=== PATIENT | female | born 1940 | race Caucasian/White ===

== ENCOUNTER 2021-04-06 10:15 | Inpatient (IN) | payer MEDICARE ==
[2021-04-06 11:47] LABS: Prothrombin Time 10.9 sec (9.5-12.1)
[2021-04-06 11:56] LABS: Hemoglobin 13.5 g/dL (12.0-15.5); Mean Corpuscular HGB CONC 33.3 g/dL (32.0-36.0); Mean Corpuscular Hemoglobin 29.3 pg (27.0-33.0); Platelet Count 310 10x3/uL (150-450); RBC Distribution Width 13.2 % (11.5-14.5); White Blood Cell (WBC) Count 12.2 10x3/uL (3.5-10.5)
[2021-04-06 12:10] LABS: ALT (SGPT) 25 U/L (8-55); AST (SGOT) 23 U/L (5-34); Albumin 4.4 g/dL (3.4-4.8); Alkaline Phosphatase 85 U/L (40-110); Anion Gap 12 mmol/L (10-20); BUN (Urea Nitrogen) 21 mg/dL (9.8-20.1); Bilirubin, Total 0.7 mg/dL (0.2-1.2); Calc. Creatinine Clearance 0 mL/min (70-130); Calcium 9.5 mg/dL (7.8-10.44); Carbon Dioxide 27 mmol/L (23-31); Chloride 106 mmol/L (98-107); Globulin 2.5 g/dL (2.4-3.5); Glucose 129 mg/dL (83-110); Potassium 4.9 mmol/L (3.5-5.1); Protein, Total 6.9 g/dL (5.8-8.1); Sodium 140 mmol/L (136-145)
[2021-04-06 17:46] LABS: SARS-CoV-2 PCR by NAA Not Detected (NotDetected)
[2021-04-07 16:10] VITALS: BMI 29.0
[2021-04-09] MEDS ORDERED: Protamine Sulfate 50 MG/5 ML VIAL ONE (06:43)
[2021-04-09] MEDS ORDERED: Heparin 10,000 UNITS/ 10 ML VIAL ONE (06:43)
[2021-04-09] MEDS ORDERED: Fentanyl 100 MCG/2 ML VIAL ONE (07:14)
[2021-04-09] MEDS ORDERED: Ondansetron PF 4 MG/2 ML Vial ONE (07:22)
[2021-04-09] MEDS ORDERED: Ketorolac Tromethamine 30 MG/ML VIAL ONE (07:22)
[2021-04-09] MEDS ORDERED: PROPOFOL 200 MG/20 ML VIAL ONE (07:22)
[2021-04-09] MEDS ORDERED: Rocuronium Bromide 10 MG/ML (10ML VIAL) ONE (07:22)
[2021-04-09] MEDS ORDERED: Lidocaine 1% PF 5 ML VIAL ONE (07:22)
[2021-04-09] MEDS ORDERED: Glycopyrrolate 0.2 MG/ML 5 ML SYRINGE ONE (07:22)
[2021-04-09] MEDS ORDERED: Dexamethasone 20 MG/5 ML VIAL ONE (07:22)
[2021-04-09] MEDS ORDERED: Cepastat Lozenges 1 LOZ PO PRN (07:26)
[2021-04-09] MEDS ORDERED: Clindamycin/D5W 900 mg/50 ml Premix Bag ONE (07:33)
== END 2021-04-09 13:30 | disposition home or self-care (01) | DRG 274 ==
LOC: SURG A 04-09 05:47 → EDSTATUS 04-09 10:15
PROVIDERS: ADMIT Internal Medicine Cardiovascular Disease; ATTEND Internal Medicine Cardiovascular Disease
PROC: 02L73DK Occlusion of Left Atrial Appendage with Intraluminal Device, Percutaneous Approach (ICD-10-PCS; principal; 2021-04-09)
PROC: B24BZZ4 Ultrasonography of Heart with Aorta, Transesophageal (ICD-10-PCS; 2021-04-09)
DX: I48.0 Paroxysmal atrial fibrillation (principal); Z00.6 Encounter for examination for normal comparison and control in clinical research program; R29.6 Repeated falls; Z20.822 Contact with and (suspected) exposure to COVID-19; Z90.710 Acquired absence of both cervix and uterus; Z95.5 Presence of coronary angioplasty implant and graft; I10 Essential (primary) hypertension; E78.5 Hyperlipidemia, unspecified; I25.10 Atherosclerotic heart disease of native coronary artery without angina pectoris; Z86.010 Personal history of colon polyps; E03.9 Hypothyroidism, unspecified; Z87.19 Personal history of other diseases of the digestive system; Z79.01 Long term (current) use of anticoagulants; F17.200 Nicotine dependence, unspecified, uncomplicated; E11.9 Type 2 diabetes mellitus without complications; Z88.5 Allergy status to narcotic agent; Z88.0 Allergy status to penicillin; Z88.8 Allergy status to other drugs, medicaments and biological substances; Z88.1 Allergy status to other antibiotic agents; Z91.040 Latex allergy status; Z88.2 Allergy status to sulfonamides; Z96.651 Presence of right artificial knee joint; Z95.818 Presence of other cardiac implants and grafts
CPT/HCPCS: 33340; 36430; 80053; 85027; 85347; 85610; 86850; 86900; 86901; 93312; 93662; C1759; C1776; J1100; J1644; J1885; J2405; J2704; J2720; J3010; J3490; U0003; U0005

== ENCOUNTER 2021-05-14 12:40 | Outpatient (CLI) | payer MEDICARE ==
[2021-05-14 14:34] LABS: Hemoglobin 12.4 g/dL (12.0-15.5); Mean Corpuscular HGB CONC 32.6 g/dL (32.0-36.0); Mean Corpuscular Hemoglobin 29.4 pg (27.0-33.0); Mean Platelet Volume 10.8 fl (7.4-10.4); Platelet Count 278 10x3/uL (150-450); RBC Distribution Width 12.8 % (11.5-14.5); Red Blood Cell (RBC) Count 4.22 10x6/uL (3.90-5.03)
[2021-05-14 15:05] LABS: Anion Gap 16 mmol/L (10-20); BUN (Urea Nitrogen) 26 mg/dL (9.8-20.1); Calc. Creatinine Clearance 0 mL/min (70-130); Calcium 9.3 mg/dL (7.8-10.44); Carbon Dioxide 24 mmol/L (23-31); Chloride 106 mmol/L (98-107); Glucose 97 mg/dL (83-110); Potassium 4.6 mmol/L (3.5-5.1); Sodium 141 mmol/L (136-145)
[2021-05-14 15:07] LABS: Prothrombin Time 11.1 sec (9.5-12.1)
[2021-05-15 11:44] LABS: SARS-CoV-2 PCR by NAA DETECTED (NotDetected)
== END 2021-05-14 12:41 | disposition home or self-care (01) ==
LOC: LABBT 12:40
PROVIDERS: ATTEND Internal Medicine Cardiovascular Disease
DX: U07.1 COVID-19 (principal); Z01.812 Encounter for preprocedural laboratory examination; I48.0 Paroxysmal atrial fibrillation; Z95.818 Presence of other cardiac implants and grafts
CPT/HCPCS: 80048; 85027; 85610; U0003; U0005

== ENCOUNTER 2022-05-03 09:00 | Inpatient (IN) | payer MEDICARE ==
[2022-05-03 10:33] LABS: Hemoglobin 12.4 g/dL (12.0-15.5); Mean Corpuscular HGB CONC 33.4 g/dL (32.0-36.0); Mean Corpuscular Hemoglobin 28.6 pg (27.0-33.0); Mean Corpuscular Volume 85.5 fl (81.6-98.3); Mean Platelet Volume 10.2 fl (7.4-10.4); Platelet Count 304 10x3/uL (150-450); RBC Distribution Width 14.4 % (11.5-14.5); Red Blood Cell (RBC) Count 4.34 10x6/uL (3.90-5.03); White Blood Cell (WBC) Count 10.4 10x3/uL (3.5-10.5)
[2022-05-03 11:41] LABS: Anion Gap 14 mmol/L (10-20); BUN (Urea Nitrogen) 20 mg/dL (9.8-20.1); Calc. Creatinine Clearance 0 mL/min (70-130); Calcium 9.4 mg/dL (7.8-10.44); Carbon Dioxide 26 mmol/L (23-31); Chloride 105 mmol/L (98-107); Estimated GFR 74; Glucose 129 mg/dL (83-110); Potassium 4.5 mmol/L (3.5-5.1); Sodium 140 mmol/L (136-145)
[2022-05-04 09:33] VITALS: BMI 27.4
[2022-05-05] MEDS ORDERED: Rocuronium Bromide 50 MG/5 ML VIAL ONE (06:19)
[2022-05-05] MEDS ORDERED: Insulin Regular 300 UNITS/3 ML VIAL ONE (06:19)
[2022-05-05] MEDS ORDERED: SUGAMMADEX SODIUM 200 MG/2 ML VIAL ONE (06:19)
[2022-05-05] MEDS ORDERED: niCARdipine 25 MG/10 ML VIAL ONE (06:19)
[2022-05-05] MEDS ORDERED: Fentanyl 250 MCG/5 ML VIAL ONE (06:19)
[2022-05-05] MEDS ORDERED: Midazolam HCl 5 mg/5 ml Vial ONE (06:19)
[2022-05-05] MEDS ORDERED: Albumin 5% 0 ML ONE (06:20)
[2022-05-05] MEDS ORDERED: Aminocaproic Acid 5 GM/20 ML VIAL ONE ×2 (06:58→07:34)
[2022-05-05] MEDS ORDERED: EPINEPHrine 1 MG/10 ML Abboject SYRINGE ONE (06:58)
[2022-05-05] MEDS ORDERED: EPINEPHrine 1 MG/ML AMP ONE (06:59)
[2022-05-05] MEDS ORDERED: Heparin 10,000 UNITS/1 ML VIAL 30,000 UNITS in Sodium Chloride 0.9% 1,000 ML FS SCH (07:00)
[2022-05-05 07:05] LABS: SARS-CoV-2 NAA Rapid Test Not Detected (NotDetected)
[2022-05-05] MEDS ORDERED: Lidocaine 1% MPF 2 ML VIAL ONE (07:08)
[2022-05-05] MEDS ORDERED: Levofloxacin 500 mg/D5W 100 ml Premix Bag ONE (07:23)
[2022-05-05] MEDS ORDERED: Heparin 5,000 UNITS/ML VIAL ONE (07:34)
[2022-05-05] MEDS ORDERED: PROPOFOL 200 MG/20 ML VIAL ONE (07:34)
[2022-05-05] MEDS ORDERED: Heparin 30,000 units/30 ml VIAL ONE (07:34)
[2022-05-05] MEDS ORDERED: Calcium Chloride 1 GM/10 ML Abboject SYRINGE ONE (07:34)
[2022-05-05] MEDS ORDERED: Cardioplegic Soln 1,000 ML BAG ONE (07:34)
[2022-05-05] MEDS ORDERED: Potassium Chloride 60 MEQ/30 ML VIAL ONE (07:34)
[2022-05-05] MEDS ORDERED: Lidocaine 1% PF 5 ML VIAL ONE (07:34)
[2022-05-05] MEDS ORDERED: Norepinephrine 4 MG/4 ML VIAL ONE (07:34)
[2022-05-05] MEDS ORDERED: Sodium Bicarb 50 MEQ/50 ML VIAL ONE (07:34)
[2022-05-05] MEDS ORDERED: Lidocaine 2% PF 100 mg/5 ml Syringe ONE (07:34)
[2022-05-05] MEDS ORDERED: Protamine Sulfate 250 MG/25 ML VIAL ONE (07:34)
[2022-05-05] MEDS ORDERED: Mannitol 12.5 GM/50 ML ONE (07:34)
[2022-05-05] MEDS ORDERED: Rocuronium Bromide 10 MG/ML (10ML VIAL) ONE (07:34)
[2022-05-05] MEDS ORDERED: Esmolol 100 MG/10 ML VIAL ONE (07:34)
[2022-05-05] MEDS ORDERED: Thrombin 5000 UNITS/5 ML VIAL ONE (07:34)
[2022-05-05] MEDS ORDERED: Vancomycin 1 GM VIAL ONE (07:34)
[2022-05-05] MEDS ORDERED: PHENYLEPHRINE-NS 100 MCG/ML 10 ML SYRINGE ONE (08:11)
[2022-05-05] MEDS ORDERED: Hetastarch 6% 500 ML 500 ML IVPB PRN (11:38)
[2022-05-05] MEDS ORDERED: hydrALAZINE 20 MG/ML VIAL SLOW IVP PRN (11:38)
[2022-05-05] MEDS ORDERED: NOREPINEPHRINE 8 MG/250 ML-D5W 250 ML IVPB PRN (11:38)
[2022-05-05] MEDS ORDERED: niCARdipine 25 MG in Sodium Chloride 0.9% 250 ML 250 ML IVPB PRN (11:38)
[2022-05-05] MEDS ORDERED: Bisacodyl 5 MG TAB PO PRN (11:38)
[2022-05-05] MEDS ORDERED: Post-Op Insulin Drip Protocol IVPB ONE (11:38)
[2022-05-05] MEDS ORDERED: Promethazine HCl 25 MG/ML VIAL IM PRN (11:38)
[2022-05-05] MEDS ORDERED: Guaifenesin DM 100-10/5 ML UDCUP PO PRN (11:38)
[2022-05-05] MEDS ORDERED: Acetaminophen 325 MG TAB PO PRN (11:38)
[2022-05-05] MEDS ORDERED: Nitroglycerin 50 MG/250 ML BOT 250 ML IVPB PRN (11:38)
[2022-05-05] MEDS ORDERED: Mag-Al 1200 mg/1200 mg/30 ML UDCUP PO PRN (11:38)
[2022-05-05] MEDS ORDERED: Potassium Chloride 20 MEQ/100 ML PREMIX BAG IVPB PRN (11:38)
[2022-05-05] MEDS ORDERED: DOPamine 400 MG/D5W 250 ML 250 ML IVPB PRN (11:38)
[2022-05-05] MEDS ORDERED: Fentanyl 100 MCG/2 ML VIAL SLOW IVP PRN (11:38)
[2022-05-05] MEDS ORDERED: Bisacodyl 10 MG SUPP PR PRN (11:38)
[2022-05-05] MEDS ORDERED: Ipratropium/Albuterol 3 ML NEB NEB PRN (11:38)
[2022-05-05 11:53] LABS: Actual Bicarbonate (HCO3a) 21.9 mEq/L (22-28); Base Excess (BEa) -1.3 mEq/L (-2.0 to +3.0); CO2 Tension 31.7 mmHg (35.0-45.0); Calcium, Ionized (arterial) 1.19 mmol/L (1.12-1.30); Carboxyhemoglobin (COHb) 0.3 gm% (0.0-3.0); Hemoglobin (Hb) 11.1 g/dL (12.0-16.0); O2 Tension (PaO2), arterial 143.7 mmHg (> 70.0); Potassium - ABG Lab 4.31 mmol/L (3.70-5.30); pH, Arterial 7.46 (7.35-7.45)
[2022-05-05 11:59] LABS: Puncture Site Arterial Line
[2022-05-05 12:00] LABS: ALV-art Gradient 244.475 mmHg (0-20)
[2022-05-05 12:00] LABS: #Eosinphils 0.1 thou/uL (0.0-0.7); #Monocytes 1.6 thou/uL (0.11-0.59); #Neutrophils 15.2 thou/uL (1.40-6.50); %Basophils 0.1 % (0.0-1.0); %Eosinophils 0.4 % (0.0-10.0); %Lymphocytes 10.4 % (21.0-51.0); %Monocytes 8.5 % (0.0-10.0); %Neutrophils 80.7 % (42.0-75.0); Hemoglobin 10.5 g/dL (12.0-16.0); Mean Corpuscular HGB CONC 33.2 g/dL (32.0-36.0); Mean Corpuscular Hemoglobin 29.2 pg (27.0-31.0); Mean Platelet Volume 7.5 fL (7.4-10.4); Platelet Count 174 10x3/uL (130-400); RBC Distribution Width 13.2 % (11.5-14.5); Red Blood Cell (RBC) Count 3.59 mill/uL (4.20-5.40); White Blood Cell (WBC) Count 18.9 10x3/uL (4.8-10.8)
[2022-05-05] MEDS ORDERED: HUMULIN R 100 UNITS in Sodium Chloride 0.9% 100 ML IVPB SCH (12:00)
[2022-05-05] MEDS ORDERED: Dextrose 5% in Water 1,000 ML IV PRN (12:00)
[2022-05-05] MEDS ORDERED: Insulin Regular 300 UNITS/3 ML VIAL SC PRN (12:00)
[2022-05-05] MEDS ORDERED: Dextrose 50% Abboject 50 ML SYRINGE SLOW IVP PRN (12:00)
[2022-05-05 12:14] LABS: INR-International Normal Ratio 1.4; Prothrombin Time 17.2 sec (12.0-14.7)
[2022-05-05] MEDS: Fentanyl 100 MCG/2 ML VIAL SLOW IVP PRN ×4 (12:16→22:14)
[2022-05-05 12:22] LABS: Anion Gap 10 mmol/L (10-20); BUN (Urea Nitrogen) 13 mg/dL (9.8-20.1); Calc. Creatinine Clearance 79 mL/min (70-130); Calcium 8.1 mg/dL (7.8-10.44); Carbon Dioxide 20 mmol/L (23-31); Chloride 113 mmol/L (98-107); Estimated GFR 89; Glucose 196 mg/dL (83-110); Potassium 4.4 mmol/L (3.5-5.1); Sodium 139 mmol/L (136-145)
[2022-05-05] MEDS: Lactated Ringer's 1,000 ML IV SCH (12:22)
[2022-05-05] MEDS: Clindamycin/D5W 900 MG in Premix Bag 1 BAG IVPB SCH ×2 (13:39→22:07)
[2022-05-05 18:18] LABS: Hemoglobin 11.6 g/dL (12.0-16.0)
[2022-05-05] MEDS: traMADol HCl 50 MG TAB PO PRN ×2 (18:24→23:23)
[2022-05-05 18:33] LABS: Glucose 139 mg/dL (83-110)
[2022-05-05 18:45] LABS: Potassium 3.4 mmol/L (3.5-5.1)
[2022-05-05] MEDS: Famotidine/PF 20 mg/2ml Vial SLOW IVP SCH (22:07)
[2022-05-06] MEDS: Fentanyl 100 MCG/2 ML VIAL SLOW IVP PRN (02:11)
[2022-05-06] MEDS: Lactated Ringer's 1,000 ML IV SCH (02:14)
[2022-05-06] MEDS: Ondansetron PF 4 MG/2 ML Vial IVP PRN ×4 (02:36→22:04)
[2022-05-06 04:25] LABS: Hemoglobin 10.4 g/dL (12.0-16.0); Mean Corpuscular HGB CONC 33.4 g/dL (32.0-36.0); Mean Corpuscular Hemoglobin 29.3 pg (27.0-31.0); Mean Corpuscular Volume 87.6 fl (78.0-98.0); Mean Platelet Volume 7.8 fL (7.4-10.4); Platelet Count 216 10x3/uL (130-400); RBC Distribution Width 13.1 % (11.5-14.5); Red Blood Cell (RBC) Count 3.55 mill/uL (4.20-5.40); White Blood Cell (WBC) Count 22.1 10x3/uL (4.8-10.8)
[2022-05-06 04:41] LABS: Anion Gap 9 mmol/L (10-20); BUN (Urea Nitrogen) 15 mg/dL (9.8-20.1); Calc. Creatinine Clearance 75 mL/min (70-130); Calcium 8.2 mg/dL (7.8-10.44); Carbon Dioxide 22 mmol/L (23-31); Chloride 109 mmol/L (98-107); Estimated GFR 78; Glucose 126 mg/dL (83-110); Potassium 4.4 mmol/L (3.5-5.1); Sodium 136 mmol/L (136-145)
[2022-05-06] MEDS: traMADol HCl 50 MG TAB PO PRN ×2 (05:14→11:15)
[2022-05-06] MEDS: Clindamycin/D5W 900 MG in Premix Bag 1 BAG IVPB SCH (05:15)
[2022-05-06 05:55] LABS: Band 6 % (5-11); Hypochromia SLIGHT = 6-15 cells (100X) (0-5/hpf); Lymphocytes 13 % (21-51); MDiff Complete? YES; Monocytes 13 % (0-10); Neutrophil 68 % (42-75); Platelet Morphology Comment Appears Adequate
[2022-05-06] MEDS ORDERED: Lactated Ringer's 1,000 ML IV SCH (07:11)
[2022-05-06] MEDS: Famotidine/PF 20 mg/2ml Vial SLOW IVP SCH (08:36)
[2022-05-06] MEDS: Aspirin Chewable 81 MG TAB PO SCH (08:36)
[2022-05-06] MEDS: Polyethylene Glycol 3350 17 GM Packet PO SCH (08:37)
[2022-05-06] MEDS ORDERED: Aspirin 325 MG TAB PO SCH (09:00)
[2022-05-06] MEDS ORDERED: Magnesium 2 GM/50 ML(in water) 2 GM in Premix Bag 1 BAG IVPB SCH (09:00)
[2022-05-06] MEDS: Insulin Regular 300 UNITS/3 ML VIAL SC PRN ×2 (11:17→18:32)
[2022-05-06] MEDS ORDERED: Insulin Glargine 30 UNITS/0.3 ML VIAL SC PRN (11:49)
[2022-05-06] MEDS: HYDROcodone/Acetaminophen 5/325 mg Tablet PO PRN ×3 (14:17→22:04)
[2022-05-06] MEDS ORDERED: Nitroglycerin 0.4 MG TAB (25 Tab Bottle) SL PRN (18:55)
[2022-05-06] MEDS: Famotidine 20 MG TAB PO SCH (21:05)
[2022-05-07] MEDS ORDERED: Digoxin 0.5 MG/2 ML AMP SLOW IVP SCH (01:00)
[2022-05-07] MEDS: Ondansetron PF 4 MG/2 ML Vial IVP PRN (03:31)
[2022-05-07] MEDS: HYDROcodone/Acetaminophen 5/325 mg Tablet PO PRN ×3 (03:32→18:02)
[2022-05-07 04:56] LABS: Mean Corpuscular HGB CONC 32.9 g/dL (32.0-36.0); Mean Corpuscular Hemoglobin 28.8 pg (27.0-31.0); Mean Corpuscular Volume 87.5 fl (78.0-98.0); Mean Platelet Volume 8.9 fL (7.4-10.4); Platelet Count 149 10x3/uL (130-400); Red Blood Cell (RBC) Count 3.11 mill/uL (4.20-5.40); White Blood Cell (WBC) Count 16.4 10x3/uL (4.8-10.8)
[2022-05-07 05:15] LABS: Anion Gap 9 mmol/L (10-20); BUN (Urea Nitrogen) 15 mg/dL (9.8-20.1); Calc. Creatinine Clearance 71 mL/min (70-130); Calcium 8.3 mg/dL (7.8-10.44); Carbon Dioxide 25 mmol/L (23-31); Chloride 103 mmol/L (98-107); Estimated GFR 75; Glucose 143 mg/dL (83-110); Potassium 4.2 mmol/L (3.5-5.1); Sodium 133 mmol/L (136-145)
[2022-05-07 05:40] LABS: Band 13 % (5-11); Eosinophils 1 % (0-10); Lymphocytes 13 % (21-51); MDiff Complete? YES; Monocytes 14 % (0-10); Neutrophil 59 % (42-75)
[2022-05-07] MEDS: Potassium Chloride 10 MEQ TAB PO SCH (08:26)
[2022-05-07] MEDS: Aspirin Chewable 81 MG TAB PO SCH (08:27)
[2022-05-07] MEDS: Famotidine 20 MG TAB PO SCH ×2 (08:27→20:38)
[2022-05-07] MEDS: Furosemide 40 MG TAB PO SCH (08:27)
[2022-05-07] MEDS: Polyethylene Glycol 3350 17 GM Packet PO SCH (08:27)
[2022-05-08] MEDS: HYDROcodone/Acetaminophen 5/325 mg Tablet PO PRN ×3 (01:40→21:48)
[2022-05-08] MEDS: Furosemide 40 MG TAB PO SCH (10:30)
[2022-05-08] MEDS: Famotidine 20 MG TAB PO SCH ×2 (10:31→21:47)
[2022-05-08] MEDS: Aspirin Chewable 81 MG TAB PO SCH (10:32)
[2022-05-08] MEDS: Polyethylene Glycol 3350 17 GM Packet PO SCH (10:32)
[2022-05-08] MEDS: Potassium Chloride 10 MEQ TAB PO SCH (10:37)
[2022-05-09] MEDS: Furosemide 40 MG TAB PO SCH (08:22)
[2022-05-09] MEDS: Potassium Chloride 10 MEQ TAB PO SCH (08:23)
[2022-05-09] MEDS: Aspirin Chewable 81 MG TAB PO SCH (08:23)
[2022-05-09] MEDS: Famotidine 20 MG TAB PO SCH (08:23)
[2022-05-09] MEDS: Polyethylene Glycol 3350 17 GM Packet PO SCH (08:24)
[2022-05-09] MEDS: HYDROcodone/Acetaminophen 5/325 mg Tablet PO PRN (10:52)
[2022-05-09 12:38] VITALS: BP 134/61; TEMP 98.5
== END 2022-05-09 17:25 | disposition home or self-care (01) | DRG 236 ==
LOC: SURG A 05-05 05:48 → EDSTATUS 05-05 09:00 → CCU 05-05 11:47 → 2NO 05-07 16:27
PROVIDERS: ADMIT Thoracic Surgery (Cardiothoracic Vascular Surgery); ATTEND Thoracic Surgery (Cardiothoracic Vascular Surgery)
PROC: 021309W Bypass Coronary Artery, Four or More Arteries from Aorta with Autologous Venous Tissue, Open Approach (ICD-10-PCS; principal; 2022-05-05)
PROC: 02100Z9 Bypass Coronary Artery, One Artery from Left Internal Mammary, Open Approach (ICD-10-PCS; 2022-05-05)
PROC: 06BQ3ZZ Excision of Left Saphenous Vein, Percutaneous Approach (ICD-10-PCS; 2022-05-05)
PROC: 06BP0ZZ Excision of Right Saphenous Vein, Open Approach (ICD-10-PCS; 2022-05-05)
PROC: 5A1221Z Performance of Cardiac Output, Continuous (ICD-10-PCS; 2022-05-05)
DX: I25.10 Atherosclerotic heart disease of native coronary artery without angina pectoris (principal); Z20.822 Contact with and (suspected) exposure to COVID-19; I48.0 Paroxysmal atrial fibrillation; G89.29 Other chronic pain; M54.9 Dorsalgia, unspecified; I95.89 Other hypotension; E78.5 Hyperlipidemia, unspecified; I10 Essential (primary) hypertension; E11.9 Type 2 diabetes mellitus without complications; K21.9 Gastro-esophageal reflux disease without esophagitis; I35.2 Nonrheumatic aortic (valve) stenosis with insufficiency; Z96.651 Presence of right artificial knee joint; Z78.1 Physical restraint status; Z82.49 Family history of ischemic heart disease and other diseases of the circulatory system; Z81.8 Family history of other mental and behavioral disorders; Z88.1 Allergy status to other antibiotic agents; Z88.5 Allergy status to narcotic agent; Z88.0 Allergy status to penicillin; Z88.2 Allergy status to sulfonamides; Z88.8 Allergy status to other drugs, medicaments and biological substances; Z91.040 Latex allergy status; Z79.899 Other long term (current) drug therapy; Z79.890 Hormone replacement therapy; Z98.890 Other specified postprocedural states; Z82.3 Family history of stroke; Z87.891 Personal history of nicotine dependence
CPT/HCPCS: 36416; 36430; 71045; 80048; 82805; 85025; 85027; 85610; 85730; 86850; 86900; 86901; 93005; 93010; 93798; 94002; 94150; 97139; C1751; C1776; J0171; J1160; J1642; J1644; J1815; J1956; J2001; J2150; J2250; J2405; J2704; J2720; J3010; J3370; J3475; J3480; J3490; J7120; P9045; S0017; S0028; U0002